=== PATIENT | male | born 1985 | race Two or more races ===

== ENCOUNTER 2025-03-01 06:19 | Emergency (ER) | payer BC ==
[~2025-03-01] VITALS: Ht 167.6 cm; Wt 86.2 kg
[2025-03-01] MEDS ORDERED: ONDANSETRON HCL/PF 4 MG/2 ML VIAL ONE (06:55)
[2025-03-01] MEDS ORDERED: KETOROLAC TROMETHAMINE 15 MG/ML VIAL ONE (06:55)
[2025-03-01] MEDS ORDERED: ACETAMINOPHEN ES 500 MG TABLET ONE (06:55)
[2025-03-01] MEDS: KETOROLAC TROMETHAMINE 15 MG/ML VIAL IV ONE (06:59)
[2025-03-01] MEDS: IV NS 0.9% 1,000 ML BAG IV ONE (06:59)
[2025-03-01] MEDS: ONDANSETRON HCL/PF 4 MG/2 ML VIAL IVP ONE (06:59)
[2025-03-01 07:01] LABS: PLATELET COUNT (AUTO) 253 K/uL (150-450); RED BLOOD CELL COUNT(AUTO) 4.94 MIL/uL (4.5-6.0); RED CELL DISTRIBUTION WIDTH 13.8 % (11.5-15.0); WHITE BLOOD COUNT (AUTO) 5.6 K/uL (4.3-11.0)
[2025-03-01] MEDS: ACETAMINOPHEN ES 500 MG TABLET PO ONE (07:05)
[2025-03-01 07:12] LABS: CALCIUM, SERUM 8.8 mg/dL (8.5-10.1); CREATININE 1.0 mg/dL (0.6-1.3); SODIUM SERUM 141.0 mmol/L (136-145); UREA NITROGEN, BLOOD 18.0 mg/dL (7-18)
[2025-03-01 07:18] LABS: ASPARTATE AMINOTRANSFERASE 19.0 U/L (15-37); TOTAL PROTEIN, SERUM 7.2 g/dL (6.4-8.2)
[2025-03-01 07:26] LABS: APPEARANCE,URINE CLEAR (CLEAR); BLOOD, URINE 2+ Ery/uL (NEGATIVE); LEUKOCYTE ESTERASE ,URINE NEGATIVE (NEGATIVE); NITRITE, URINE NEGATIVE (NEGATIVE); UGLUCOSE NEGATIVE (NEGATIVE)
[2025-03-01 07:28] LABS: ADD URINE CULTURE NO; SQUAMOUS EPITHELIAL CELL,UR Few /HPF (None Seen)
[2025-03-01] MEDS ORDERED: TAMS-12 PO (09:00)
[2025-03-01] MEDS ORDERED: ONDA4TAB5 PO (09:00)
[2025-03-01] MEDS ORDERED: IBUP-1955 PO (09:00)
[2025-03-01 09:05] VITALS: BP 128/71; TEMP 98.4; O2SAT 98
== END 2025-03-01 09:06 | disposition home or self-care (01) ==
LOC: ER 06:26
DX: N23 Unspecified renal colic (principal); R11.0 Nausea; Z87.442 Personal history of urinary calculi
CPT/HCPCS: 99285; 96374; 76770; 96361; 96375; 76870; 85025; 80048; 83690; 80076; 81001; 36415; J1885; J2405; J7030